=== PATIENT | female | born 1970 | race Caucasian/White ===

== ENCOUNTER 2023-09-05 11:22 | Emergency (ER) | payer BC ==
[~2023-09-05] VITALS: Ht 162.6 cm; Wt 82.7 kg
[2023-09-05 11:27] VITALS: TEMP 98.7
[2023-09-05 11:56] LABS: BASOPHILS % (AUTO) 0.6 % (0-1); EOSINOPHILS # (AUTO) 0.1 X10'3 (0-0.9); EOSINOPHILS % (AUTO) 1.6 % (0-6); HEMATOCRIT 45.9 % (35.0-45.0); HEMOGLOBIN 15.2 g/dl (12.0-16.0); LYMPHOCYTES % (AUTO) 27.5 % (21-51); MEAN CORPUSCULAR HEMOGLOBIN 28.9 PG (27.0-31.0); MEAN CORPUSCULAR HGB CONC 33.1 g/dL (33.0-36.5); MEAN CORPUSCULAR VOLUME 87.3 FL (78-98); MEAN PLATELET VOLUME 8.8 FL (7.4-10.4); MONOCYTES # (AUTO) 0.6 X10'3 (0-0.9); MONOCYTES % (AUTO) 8.3 % (2-12); NEUTROPHILS # (AUTO) 4.4 X10'3 (1.8-7.7); PLATELET COUNT 268 X10'3 (140-440); RED BLOOD COUNT 5.26 X10'6 (4.20-5.60); RED CELL DISTRIBUTION WIDTH 14.2 % (11.5-14.5); WHITE BLOOD COUNT 7.1 X10'3 (4.5-11.0)
[2023-09-05 12:11] LABS: ALANINE AMINOTRANSFERASE 23 U/L (12-78); ALBUMIN 3.9 G/DL (3.4-5.0); ALKALINE PHOSPHATASE 57 IU/L (46-116); ANION GAP 11 (8-16); ASPARTATE AMINO TRANSFERASE 20 U/L (10-37); BILIRUBIN,TOTAL 0.9 MG/DL (0.1-1.0); BLOOD UREA NITROGEN 16 MG/DL (7-18); BUN/CREATININE RATIO 13.4 (10.0-20.0); CALCIUM 9.2 MG/DL (8.5-10.1); CHLORIDE 105 MMOL/L (99-107); CREATININE 1.19 MG/DL (0.40-0.90); GLUCOSE 95 MG/DL (70-104); POTASSIUM 4.5 MMOL/L (3.5-5.1); SODIUM 142 MMOL/L (135-145); TOTAL PROTEIN 7.8 G/DL (6.4-8.2); eCRCL 48 ML/MIN; eGFR 48 ML/MIN
[2023-09-05 12:27] LABS: PRO BRAIN NATRIURETIC PEPTIDE 72 PG/ML (0-125)
[2023-09-05] MEDS ORDERED: iohexol 350MG/ML 100ml bottle IV ONE (15:39)
[2023-09-05] MEDS: proCHLORperazine 10 MG/2 ml inj IV ONE (16:04)
[2023-09-05] MEDS: dexamethasone 4mg/ml inj IV SCH (16:04)
[2023-09-05] MEDS: ketorolac tromethamine 15mg/ml inj. IV ONE (16:06)
[2023-09-05] MEDS: normal saline 1000ML IV soln IVB ONE (16:07)
[2023-09-05] MEDS: diphenhydrAMINE 50 mg/ml inj IV ONE (16:07)
[2023-09-05 16:48] VITALS: BP 113/70; PULSE 68; RESP 16; O2SAT 100
== END 2023-09-05 17:10 | disposition home or self-care (01) ==
LOC: ER 11:23
DX: R42 Dizziness and giddiness (principal); G43.909 Migraine, unspecified, not intractable, without status migrainosus; I10 Essential (primary) hypertension; Z88.0 Allergy status to penicillin
CPT/HCPCS: 36415; 70450; 70496; 70498; 71045; 80053; 83880; 84484; 85025; 93005; 96374; 96375; 99285; J0780; J1100; J1200; J1885; J3490; J7030; Q9967